=== PATIENT | male | born 1995 | race Caucasian/White ===

== ENCOUNTER 2017-09-19 12:16 | Emergency (ER) | payer BC ==
[~2017-09-19] VITALS: Ht 180.3 cm; Wt 80.7 kg
[2017-09-19 12:30] VITALS: BP 121/81; PULSE 75; TEMP 36.7; O2SAT 96; Ht 180.3 cm; Wt 80.7 kg
[2017-09-19] MEDS ORDERED: XYLOCAINE 1%/SOD BICARB 20 ML VIAL INFIL ONE (13:00)
--- NOTE | 2017-09-19 16:00 | EMERGENCY ROOM VISIT NOTE ---
History First contact with patient: 12:43 Chief Complaint: RECTAL PAIN Stated Complaint: PERIANAL ABSCESS History of Present Illness The patient is a 21 year old male who presents to the Emergency Room with complaints of a perianal abscess. The patient reports that he was sent here from [facility] for reevaluation. The patient reports that he did notice some swelling and discomfort over 7 days ago. The pain has significantly worsened over the past 2-3 days. He denies any worsening pain with bowel movements. He has had no fevers or chills. He denies any prior history of skin lesions or wounds. The patient has been performing sitz baths over the past few days. He rates his discomfort an 8 out of 10. Review of Systems 10 system review was performed and was negative except for pertinent positives and negatives as indicated in history of present illness Past Medical/Surgical History Medical Problems: (1) No significant past medical history Surgical Problems: (1) No history of previous surgery Family History Unremarkable Social History Smoking Status: Never Smoker Alcohol Use: occasionally Marital Status: single Occupation Status: [employer] ([employer]) Physical Exam Vital Signs Date Time Temp Pulse Resp B/P (MAP) Pulse Ox O2 Delivery O2 Flow Rate FiO2 09/19/17 12:30 36.7 75 20 121/81 96 Room Air Physical Exam CONSTITUTIONAL: Healthy and well nourished. Alert and oriented X 3 with positive affect. She appears in mild distress from discomfort. HEENT: Normocephalic, atraumatic. Pupils equal, round and reactive. NECK: Full active range of motion without discomfort. RESPIRATORY: Clear to auscultation bilaterally with no wheezing, crackles, rhonchi or stridor. CARDIOVASCULAR: Regular rate and rhythm with no murmurs, rubs or gallops. GASTROINTESTINAL: Bowel sounds present in all quadrants. Soft and nontender to palpation. MUSCULOSKELETAL: Full range of motion of all joints without discomfort. INTEGUMENTARY: Examination shows a walnut sized fluctuant mass of the right medial buttock. It does not approximate the anus. Digital rectal exam does not show any tenderness to palpation of the perianal region. NEUROLOGIC: No focal neurologic deficits noted. Medical Decision & Procedures Procedure I&D procedure was performed under local anesthesia after receiving verbal consent from the patient. The area was painted with iodine and allowed to dry. Using buffered 1% lidocaine without epinephrine, good local anesthesia was administered. Using a 11 scalpel, a 1 m incision was made with copious purulent drainage. Cultures were collected. Needle drivers were used to further open underlying loculated areas, then the wound was pressure irrigated with normal saline. 0.25 inch gauze/packing was loosely inserted in all reachable recesses of the wound, then a bacitracin dry dressing was applied. The patient tolerated the procedure well. ED Course Patient history and physical exam were performed. Nurse's notes were reviewed. Vital signs were reviewed and were normal. I&D procedure was performed under local anesthesia. Cultures were collected. The patient was encouraged to continue taking all Augmentin antibiotics as previously prescribed. Wound care was further briefed with the patient. He may remove the packing in 48 hours, or return to the emergency department for this procedure. He was instructed to return for any persistent or worsening infection, fever or significantly worsening pain. The patient refused any prescription analgesics, was happy with plan of care, and rated his discomfort a 2 out of 10 at the time of discharge. Medical Decision Medication Reconcilliation Current Medication List: was personally reviewed by me Blood Pressure Screening Patient's blood pressure: Normal blood pressure Impression Primary Impression: Abscess of right buttock Departure Information Dispostion Home / Self-Care Condition GOOD Forms HOME CARE DOCUMENTATION FORM, IMPORTANT VISIT INFORMATION Patient Instructions My [facility] Additional Instructions Keep dressing over the wound dry to help promote drainage. Complete all Augmentin antibiotics as previously prescribed. Ibuprofen 800 mg and/or Tylenol 1000 mg every 8 hours. You may also alternate these medications for more effective pain relief: Ibuprofen --4 HRS--> Tylenol --4 HRS--> ibuprofen --4 HRS--> Tylenol .... Packing removal in 48 hours. Return to the emergency department for any progressively worsening infection, pain or developing fever. 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
--- NOTE | 2017-09-22 15:32 | Pharmacy Progress Note ---
ED Pharmacist Culture FollowUp Date of Service: Sep 22, 2017. Patient was encouraged to continue taking previously augmentin, which should cover the E. Coli, group C beta strep, and bacteroides fragilis growing from the patient's abscess culture. I attempted to contact patient to inform of results and reaffirm the continuation of antibiotics, but was unable to reach him.
== END 2017-09-19 13:37 | disposition home or self-care (01) ==
LOC: C.EDB 12:24 → C.EDD 13:37
DX: L02.31 Cutaneous abscess of buttock (principal)